=== PATIENT | female | born 1960 ===

== ENCOUNTER 2021-06-16 22:04 | Emergency (ER) | payer OTHER ==
[~2021-06-16] VITALS: Ht 170.2 cm; Wt 99.8 kg
[~2021-06-16 22:04] MED LIST: CARDURA1 MG; CYCLOBENZAPRINE10 MG PO; DICLOFENAC SODI50 MG PO; DIOVAN160 M1 PO; HYDROCHLORIC2 MG/ML; JANUVIA25 MG; METFORMIN HYDRO25 GM; NEURONTIN300 MG PO; PRILOSEC10 MG; SYNTHROID50 MCG PO; TENORMIN0.5 MG/ML; ZANTAC150 M3; ZOCOR5 MG; ZYRTEC10 M3
[2021-06-16] MEDS ORDERED: XARELTO10 MG PO (22:22)
[2021-06-16] MEDS ORDERED: TRANDATE300 MG PO (22:22)
[2021-06-16] MEDS ORDERED: MICARDIS80 MG PO (22:22)
[2021-06-17] MEDS ORDERED: NAPROXEN500 MG PO (02:04)
[2021-06-17] MEDS ORDERED: BACTRIM DS TAB1 EACH PO (02:04)
[2021-06-17] MEDS ORDERED: DUI500 PO (02:04)
[2021-06-17] MEDS ORDERED: INTESTINEX680 M1 PO (02:04)
== END 2021-06-17 02:14 | disposition home or self-care (01) ==
LOC: ER 22:04
DX: L02.416 Cutaneous abscess of left lower limb (principal); B96.4 Proteus (mirabilis) (morganii) as the cause of diseases classified elsewhere; B95.2 Enterococcus as the cause of diseases classified elsewhere; L03.116 Cellulitis of left lower limb; Z88.8 Allergy status to other drugs, medicaments and biological substances; I10 Essential (primary) hypertension; E11.9 Type 2 diabetes mellitus without complications; Z79.4 Long term (current) use of insulin